=== PATIENT | female | born 1970 | race African-American/Black ===

== ENCOUNTER 2019-02-23 21:52 | Emergency (ER) | payer BC ==
[~2019-02-23] VITALS: Ht 162.6 cm; Wt 79.8 kg
[2019-02-23 21:58] VITALS: Ht 162.6 cm; Wt 79.8 kg
[2019-02-24 02:45] VITALS: BP 123/62
== END 2019-02-24 02:45 | disposition home or self-care (01) ==
LOC: ED 21:52
DX: S52.571A Other intraarticular fracture of lower end of right radius, initial encounter for closed fracture (principal); I10 Essential (primary) hypertension; W18.30XA Fall on same level, unspecified, initial encounter; Y93.89 Activity, other specified; Y92.89 Other specified places as the place of occurrence of the external cause; Y99.8 Other external cause status
CPT/HCPCS: J2405; J3490; Q0092